=== PATIENT | male | born 2005 | race Caucasian/White ===

== ENCOUNTER 2024-01-17 15:42 | Emergency (ER) | payer MEDICAID ==
[2024-01-17] MEDS: Sulfamethoxazole/Trimethoprim 800-160 MG Tab PO ONE (17:04)
== END 2024-01-17 17:13 | disposition home or self-care (01) ==
LOC: JD.ED 15:42
DX: L08.9 Local infection of the skin and subcutaneous tissue, unspecified (principal); B96.89 Other specified bacterial agents as the cause of diseases classified elsewhere
CPT/HCPCS: 99283; A9270; 99282